=== PATIENT | male | born 1940 | race Caucasian/White ===

== ENCOUNTER 2020-11-10 10:15 | Emergency (ER) | payer MEDICARE, BC, SELFPAY ==
[2020-11-10 10:24] VITALS: BP 145/73; PULSE 58; RESP 20; TEMP 36.2; O2SAT 98
--- NOTE | 2020-11-10 10:34 | ED.BACK ---
HPI - Back Pain/Injury General Chief Complaint: Back Pain/Injury Stated Complaint: Lower back pain Time Seen by Provider: 11/10/20 10:24 Source: patient and RN notes reviewed History of Present Illness HPI Narrative: Patient is an 80-year-old male who presents the urgent care with complaints of acute on chronic left low back pain. 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 Patient states that he took ibuprofen last night and it felt much better. Denies of any radiation of the pain or any loss of bowel or bladder. No other acute complaints. No acute distress noted. Patient aware of the plan of care. Some parts of this dictation were generated by voice recognition software and may contain typographical and/or grammatical inaccuracies. Related Data Home Medications Medication Instructions Recorded Confirmed atorvastatin 40 mg PO DAILY 11/10/20 11/10/20 clopidogrel [Plavix] 75 mg PO DAILY 11/10/20 11/10/20 nifedipine 60 mg PO DAILY 11/10/20 11/10/20 Allergies Allergy/AdvReac Type Severity Reaction Status Date / Time Penicillins Allergy Unknown Weakness Verified 11/10/20 10:34 Review of Systems Review of Systems: CONSTITUTIONAL: Denies fever, chills, or sweats. EYES: Denies visual changes, redness, or discharge. ENT: Denies rhinorrhea, congestion, sore throat, or otalgia. CARDIOVASCULAR: Denies chest pain, palpitations, or edema. RESPIRATORY: Denies cough or dyspnea. GASTROINTESTINAL: Denies abdominal pain, nausea, vomiting, or diarrhea. GENITOURINARY: Denies dysuria or hematuria. SKIN: Denies rash or itching. MUSCULOSKELETAL: Reports of acute on chronic left lower back pain NEUROLOGIC: Denies headache, numbness, or weakness. All other systems reviewed are negative, except as documented in HPI. [facility] Family History Family History (Updated 10/29/18 @ 15:28 by DOCTOR UNKNOWN) Father Family history of cardiovascular disease Mother Family history of malignant neoplasm of breast in first degree relative Social History Social History Smoking status: Heavy tobacco smoker Second hand tobacco smoke exposure: Yes Alcohol intake: current Comments At the time of my signature, I reviewed and agree with the nursing past medical, surgical, social, and family history. There is no relevant family history pertinent to the patient complaint. Exam Narrative: GENERAL: This is a well-nourished, well-developed patient, in no apparent distress. HEAD: normocephalic, atraumatic. EYES: PERRL. Sclera clear/white. Vision is grossly intact. EARS: External ears normal NOSE: External nose normal with no obvious nasal discharge, nares without redness, no rhinorrhea. THROAT: Mucous membranes moist NECK: Neck supple CARDIOVASCULAR: Regular rate and rhythm RESPIRATORY: Clear to auscultation. Breath sounds equal bilaterally. No wheezes, rales, or rhonchi. SKIN: warm, intact with no suspicious lesions or rash, good texture and turgor. NEURO: awake, alert, and oriented to person, place and time. There were no obvious focal neurologic abnormalities. EXTREMITIES: No clubbing, cyanosis, or edema. BACK: Mild to moderate left lumbar tenderness. Negative SLE Course Vital Signs Vital signs: Vital Signs Temperature 97.1 F L 11/10/20 10:24 Pulse Rate 58 L 11/10/20 10:24 Respiratory Rate 20 11/10/20 10:24 Blood Pressure 145/73 H 11/10/20 10:24 Pulse Oximetry 98 11/10/20 10:24 Temperature 97.1 F L 11/10/20 10:24 Pulse Rate 58 L 11/10/20 10:24 Respiratory Rate 20 11/10/20 10:24 Blood Pressure 145/73 H 11/10/20 10:24 Pulse Oximetry 98 11/10/20 10:24 Reviewed-patient is informed that they may have pre-hypertension or hypertension based on a blood pressure reading in the department. I recommend the patient call the primary care provider listed on their discharge instructions or a physician of their valdes
[2020-11-10] MEDS: predniSONE 20 MG TABLET 60 MG PO (10:46)
== END 2020-11-10 10:57 | disposition home or self-care (01) ==
PROVIDERS: Emergency Provider Nurse Practitioner Family; PCP Family Medicine
DX: S39.012A Strain of muscle, fascia and tendon of lower back, initial encounter (principal); X50.3XXA Overexertion from repetitive movements, initial encounter; F17.200 Nicotine dependence, unspecified, uncomplicated; I25.10 Atherosclerotic heart disease of native coronary artery without angina pectoris; E78.00 Pure hypercholesterolemia, unspecified; I10 Essential (primary) hypertension; I49.3 Ventricular premature depolarization; Z85.46 Personal history of malignant neoplasm of prostate; Z92.3 Personal history of irradiation
CPT/HCPCS: 99213; G0463; J7512

== ENCOUNTER 2021-05-25 12:26 | Emergency (ER) | payer MEDICARE, BC, SELFPAY ==
[2021-05-25 12:32] VITALS: BP 156/72; PULSE 54; RESP 20; TEMP 36.7; O2SAT 98
--- NOTE | 2021-05-25 12:50 | ED.BACK ---
HPI - Back Pain/Injury General Chief Complaint: Abdominal Pain Stated Complaint: lower right back pain crossing to front Time Seen by Provider: 05/25/21 12:48 Source: patient and RN notes reviewed Mode of arrival: ambulatory Limitations: no limitations History of Present Illness HPI Narrative: 81-year-old male presents with concern for back pain that started this morning that is now radiating to his abdomen. 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 He describes a mid abdominal tear burning feeling. He reports symptoms are worse when he presses on his abdomen. He denies chest pain, shortness of breath, palpitations, syncope or near syncope, lightheadedness. He denies nausea, vomiting, diarrhea or constipation. Reports using heat without relief MD elicited complaint: back pain Related Data Home Medications Medication Instructions Recorded Confirmed atorvastatin 40 mg PO DAILY 11/10/20 11/10/20 clopidogrel [Plavix] 75 mg PO DAILY 11/10/20 11/10/20 nifedipine 60 mg PO DAILY 11/10/20 11/10/20 Allergies Allergy/AdvReac Type Severity Reaction Status Date / Time Penicillins Allergy Unknown Weakness Verified 11/10/20 10:34 Review of Systems Review of Systems: CONSTITUTIONAL: Denies malaise, chills, sweats, or fever. CARDIOVASCULAR: Denies chest pain, palpitations, or edema. RESPIRATORY: Denies cough or dyspnea. GASTROINTESTINAL: Reports tearing/burning abdominal pain. Denies nausea, vomiting, diarrhea, loss of bowel function GENITOURINARY: Denies dysuria, hematuria, frequency, loss of bladder function. Reports his urine is clearer than usual SKIN: Denies rash or itching. MUSCULOSKELETAL: Reports right low back pain NEUROLOGIC: Denies numbness, weakness, or headache. All systems reviewed & are unremarkable except as noted in HPI and below PMFSH Family History Family History (Updated 10/29/18 @ 15:28 by DOCTOR UNKNOWN) Father Family history of cardiovascular disease Mother Family history of malignant neoplasm of breast in first degree relative Social History Social History Smoking status: Heavy tobacco smoker Second hand tobacco smoke exposure: Yes Alcohol intake: current Comments At time of signature, agree with nursing past medical, surgical, social and family history. There is no relevant family history pertinent to the presenting complaint Exam Narrative: GENERAL: Well-appearing, well-nourished, and in no acute distress. HEAD: Normocephalic, atraumatic. EYES: PERRLA and EOMI. NECK: Supple. No lymphadenopathy. CHEST: Clear to auscultation. No respiratory distress. HEART: Regular rate and rhythm. Distal pulses palpable and equal, cap refill <3 seconds ABDOMEN: Soft, nontender, obese, normal active bowel sounds, no palpable or pulsatile masses. MUSCULOSKELETAL: Grossly normal range of motion and strength in all extremities. Transfers from to sitting to standing. SKIN: Warm, dry, no rash. NEURO: No focal deficits. Alert and oriented x3. Normal gait. PSYCH: Normal mood and affect Course Course Emergency Course: Patient is aware of understands and agrees to be transferred to the emergency department patient agrees to proceed directly to the emergency department. Portions of this record may have been created with voice recognition software Level of Care: Express Care Visit Vital Signs Vital signs: Vital Signs Temperature 98.0 F 05/25/21 12:32 Pulse Rate 54 L 05/25/21 12:32 Respiratory Rate 20 05/25/21 12:32 Blood Pressure 156/72 H 05/25/21 12:32 Pulse Oximetry 98 05/25/21 12:32 Temperature 98.0 F 05/25/21 12:32 Pulse Rate 54 L 05/25/21 12:32 Respiratory Rate 20 05/25/21 12:32 Blood Pressure 156/72 H 05/25/21 12:32 Pulse Oximetry 98 05/25/21 12:32 Reviewed. Patient has history of hypertension Transfer Transfered to: [place] Transfer rationale: Back pain with associated abdominal pain Acceptin
== END 2021-05-25 13:02 | disposition short-term general hospital (02) ==
PROVIDERS: Emergency Provider Nurse Practitioner; PCP Family Medicine
DX: R10.9 Unspecified abdominal pain (principal); I25.10 Atherosclerotic heart disease of native coronary artery without angina pectoris; E78.00 Pure hypercholesterolemia, unspecified; I10 Essential (primary) hypertension; I73.9 Peripheral vascular disease, unspecified; Z85.46 Personal history of malignant neoplasm of prostate; Z92.3 Personal history of irradiation
CPT/HCPCS: 99212; G0463

== ENCOUNTER 2021-05-25 13:28 | Emergency (ER) | payer MEDICARE, BC, SELFPAY ==
--- NOTE | ~2021-05-25 | CT_ITS ---
EXAMINATION: CT abdomen pelvis wo con EXAM DATE: 05/25/2021 14:35 INDICATION: right flank pain, radiate to groin . TECHNIQUE: Spiral CT of the abdomen and pelvis was performed without contrast. Axial, coronal and sag ittal images were reviewed. The dose-length product (DLP) for this examination was 361.14 mGy-cm. T he exposure was tailored according to patient size (auto mA exposure control), and iterative reconstr uction (ASIR) was used as additional dose reduction technique. There is no prior study for compariso n. FINDINGS: Small renal cysts. There is no nephrolithiasis or hydronephrosis. There are prostate radi ation seeds. Prostate is normal in size. Small right inguinal fat-containing hernia. The bladder is unremarkable. The liver, spleen, adrenal glands and pancreas are unremarkable. Gallbladder is unrem arkable. No biliary obstruction. There is no retroperitoneal or pelvic lymphadenopathy. There is moderate to severe scattered arteriosclerotic disease. The appendix is normal. The stomach and small bowel are unremarkable. There is moderate amount of c olonic stool. No free intraperitoneal gas. The heart is normal in size. There are no pericardial or pleural effusions. The lung bases are unremarkable. There are no osteoblastic or osteolytic les ions identified. IMPRESSION: 1. No nephrolithiasis, hydronephrosis or acute intra-abdominal findings. 2. Moderate amount of colonic stool and gas. 3. Small right inguinal hernia. Reviewed, dictated and finalized at location B.
[2021-05-25 13:36] VITALS: BP 171/99; PULSE 57; RESP 18; TEMP 36.8; O2SAT 96
--- NOTE | 2021-05-25 14:04 | ED.BACK ---
HPI - Back Pain/Injury General Chief Complaint: Back Pain/Injury Stated Complaint: groin pain Time Seen by Provider: 05/25/21 13:32 Source: patient, RN notes reviewed and old records reviewed Mode of arrival: ambulatory Limitations: no limitations History of Present Illness HPI Narrative: This is an 81 year old male who presents with complaint of right lower back pain. He noticed pain today when he was standing up. His pain was located to his right lower back . His pain was worse with walking. He applied a heating pain and OTC pain patch. He states this did help but he developed severe pain to right groin when he was getting the bed. This pain has now resolved. He denies nausea, vomiting, leg weakness, numbness or tingling. He has chronic swelling to his right leg due to previous surgery and vascular procedures. Related Data Home Medications Medication Instructions Recorded Confirmed atorvastatin 40 mg PO DAILY 11/10/20 11/10/20 clopidogrel [Plavix] 75 mg PO DAILY 11/10/20 11/10/20 nifedipine 60 mg PO DAILY 11/10/20 11/10/20 Allergies Allergy/AdvReac Type Severity Reaction Status Date / Time Penicillins Allergy Unknown Weakness Verified 05/25/21 14:02 Review of Systems Review of Systems: All systems reviewed & are unremarkable except as noted in HPI and below Constitutional: Constitutional: Denies chills and Denies fever(s) Cardiovascular: Cardiovascular: Denies chest pain Respiratory: Respiratory: Denies cough and Denies dyspnea Gastrointestinal: Gastrointestinal: Denies abdominal pain, Denies diarrhea, Denies nausea and Denies vomiting Genitourinary: Genitourinary: Denies hematuria Musculoskeletal: Musculoskeletal: Reports back pain Neurologic: Denies focal weakness, Denies numbness and Denies weakness [facility] Past Medical History Medical History (Updated 05/25/21 @ 15:54 by Emily Bustillo MD) DVT (deep venous thrombosis) Hypertension Prostate cancer Vascular disease Surgical History Surgical History (Updated 05/25/21 @ 15:50 by Emily Bustillo MD) History of back surgery Hx of appendectomy Family History Family History (Updated 10/29/18 @ 15:28 by DOCTOR UNKNOWN) Father Family history of cardiovascular disease Mother Family history of malignant neoplasm of breast in first degree relative Social History Social History Smoking status: Heavy tobacco smoker Second hand tobacco smoke exposure: Yes Alcohol intake: current Exam Const: General: no acute distress and alert Orientation/consciousness: patient oriented x3 Eyes: EOM: EOMs intact bilaterally Resp: Effort & Inspection: normal respiratory effort and no retractions Auscultation: clear to auscultation bilaterally Cardio: Rate: regular rate Rhythm: regular rhythm Heart sounds: no murmurs GI: GI Palp: Yes Soft to palpation, No Tenderness to palpation present (GI) and No Guarding due to palpation present (GI) Auscultation: normal bowel sounds : General: Yes no CVA tenderness Back/Spine/Pelvis: Back: no CVA tenderness Skin: General skin exam: normal color Rashes: no rashes Neuro: General: patient oriented x3, moves all extremities and CN's II-XI intact bilaterally Extrem: Other: right leg edema, right femoral, right pedal pulses presents, neurovascular intact Psych: Mental Status: mental status grossly normal Affect: normal affect Course Reevaluation(s) Reevaluation #1: Patient's pain has resolved . It resolved before he was evaluation. He has chronic edema from multiple procedures. he does not have worsening swelling. He denies not have signs of ischemia to suggest acute artery occlusion. This is likely muscular Date: 05/25/21 Time: 15:51 Vital Signs Vital signs: Vital Signs Temperature 98.2 F 05/25/21 13:36 Pulse Rate 57 L 05/25/21 13:36 Respiratory Rate 18 05/25/21 13:36 Blood Pressure 171/99 H 05/25/21 13:36 Pulse Oximetry 96 05/25/21 13:36 Te
[2021-05-25 14:29] LABS: Basophils Absolute Auto 0.1 K/mm3 (0.0-0.1); Basophils Percent Auto 0.8 % (0.2-1.2); Eosinophils Absolute Auto 0.3 K/mm3 (0-0.3); Eosinophils Percent Auto 3.9 % (0-4.4); Hematocrit 48.7 % (42.0-52.0); Hemoglobin 16.1 g/dL (14.0-18.0); Immature Granulocyte Absolute 0.03 K/mm3 (0.00-0.031); Immature Granulocyte Percent A 0.4 % (0-0.5); Lymphocytes Absolute Auto 1.95 K/mm3 (0.9-3.2); Lymphocytes Percent Auto 25.2 % (18.3-44.2); Mean Corpuscular HGB Conc 33.1 g/dl (32-36); Mean Corpuscular Hemoglobin 29.9 pg (26-34); Mean Corpuscular Volume 90.5 fl (80-100); Mean Platelet Volume 9.8 fl (7.4-10.4); Monocytes Absolute Auto 0.8 K/mm3 (0.1-0.6); Monocytes Percent Auto 10.1 % (2.6-8.5); Neutrophils Absolute Auto 4.6 K/mm3 (1.3-6.7); Neutrophils Percent Auto 59.6 % (45.5-73.1); Platelet Count Result 282 k/mm3 (150-375); Red Blood Count 5.38 M/mm3 (4.6-6.20); Red Cell Distribution Width 14.8 % (11.5-14.5); White Blood Count 7.8 K/mm3 (4.5-10.0)
[2021-05-25 14:32] LABS: Appearance Urine Clear (Clear); Bilirubin Urine Negative (Negative); Blood Urine 1+ (Negative); Color Urine Yellow (Yellow); Glucose Urine UA Negative (Negative); Ketones Urine Negative (Negative); Leukocyte Esterase Ur Negative LEU/UL (Negative); Nitrate Urine Negative (Negative); Protein Urine Negative (Negative); pH Urine 7.5 (5.0-9.0)
[2021-05-25 14:39] LABS: Alanine Aminotransferase 19 U/L (4-50); Albumin Level 4.6 g/dL (3.5-5.1); Alkaline Phosphatase 76 U/L (38-126); Anion Gap 6 mmol/L (8-16); Aspartate Amino Transferase 31 U/L (17-59); Bilirubin,Total 0.6 mg/dL (0.2-1.3); Blood Urea Nitrogen 15 mg/dL (9-20); Calcium 9.2 mg/dL (8.4-10.2); Carbon Dioxide 25 mmol/L (22-30); Chloride 103 mmol/L (98-107); Estimated CRCL calculation 72 ml/min; Estimated Glomerular Filt Rate > 60; Glucose 113 mg/dL (65-110); Potassium 4.4 mmol/L (3.4-5.0); Sodium 134 mmol/L (137-145)
[2021-05-25 14:45] LABS: Mucus Urine Rare /lpf; RBC Urine 21-50 /hpf (0-2); WBC Urine 0-3 /hpf
[2021-05-25 14:46] LABS: Add Urine Microscopic? NO
[2021-05-25 14:48] LABS: Prothrombin Time 12.6 Seconds (11.1-14.7)
[2021-05-25 14:49] LABS: Partial Thromboplastin Time 26.6 SECONDS (22.3-36.8)
[2021-05-25 16:23] VITALS: BP 159/78; PULSE 84; RESP 16; O2SAT 98
== END 2021-05-25 16:23 | disposition home or self-care (01) ==
PROVIDERS: Emergency Provider General Practice; PCP Family Medicine
DX: R10.9 Unspecified abdominal pain (principal); I10 Essential (primary) hypertension; I38 Endocarditis, valve unspecified; Z86.718 Personal history of other venous thrombosis and embolism; Z85.46 Personal history of malignant neoplasm of prostate; F17.200 Nicotine dependence, unspecified, uncomplicated; K40.90 Unilateral inguinal hernia, without obstruction or gangrene, not specified as recurrent
CPT/HCPCS: 36415; 74176; 80053; 81003; 85025; 85610; 85730; 99284

== ENCOUNTER 2021-09-02 08:04 | Emergency (ER) | payer MEDICARE, BC, SELFPAY ==
--- NOTE | ~2021-09-02 | XR_ITS ---
XR cervical spine 4-5V 09/02/2021 08:36 Indication: Generalized neck pain and stiffness Procedure: 4 views of the cervical spine Comparison: No prior studies for comparison. Findings: Vertebral body heights are maintained. There is disc narrowing at C5-6 and C6-7. There is m ultilevel uncinate and facet hypertrophy. No prevertebral soft tissue swelling. There is degenerative anterolisthesis at C3-4. Lung apices are normal. There are carotid calcifications. Impression: 1: Moderate cervical spondylosis. Reviewed, dictated and finalized at location A. Impression: 1: Moderate cervical spondylosis.
[2021-09-02 08:14] VITALS: BP 142/68; PULSE 60; RESP 16; TEMP 36.3; O2SAT 97
--- NOTE | 2021-09-02 08:26 | ED.GENADULT ---
HPI - General Adult General Chief complaint: Neck Pain/Injury Stated complaint: Neck pain Source: patient Mode of arrival: ambulatory Limitations: no limitations History of Present Illness HPI narrative: Patient presents for evaluation of neck pain for the last 6 days. He indicates he woke from sleep with his symptoms. He thought he had slept on (his) neck wrong . He does not remember any specific injury. He states he does use a riding plush brusher and states that he does get jostled around a bit while he is riding. Since that time he feels like his neck is sore and stiff. Current pain rating is 4/10 but pain does increase to 7/10 at times. Pain was initially in left trapezius but now has pain in left and right trapezius muscles. Denies radiation into upper extremities. He has used aleve with some improvement in his symptoms thereafter. Related Data Home Medications Medication Instructions Recorded Confirmed atorvastatin 40 mg tablet 40 mg PO DAILY 11/10/20 09/02/21 clopidogrel 75 mg tablet (Plavix) 75 mg PO DAILY 11/10/20 09/02/21 nifedipine 60 mg tablet,extended 60 mg PO DAILY 06/14/21 09/02/21 release 24 hr umeclidinium 62.5 mcg-vilanterol 1 inh inhalation DAILY 06/14/21 09/02/21 25 mcg/actuation powdr for inhalation aspirin 81 mg tablet,delayed 81 mg PO DAILY 07/27/21 09/02/21 release nitroglycerin 0.4 mg sublingual 0.4 mg sublingual Q5M PRN Chest 07/27/21 09/02/21 tablet Pain umeclidinium 62.5 mcg-vilanterol 2 inh inhalation DAILY 09/02/21 09/02/21 25 mcg/actuation powdr for inhalation (Anoro Ellipta) Allergies Allergy/AdvReac Type Severity Reaction Status Date / Time No Known Allergies Allergy Verified 09/02/21 08:23 Review of Systems Review of Systems: CONSTITUTIONAL: Denies fever, chills, or sweats. EYES: Denies visual changes, redness, or discharge. ENT: Denies rhinorrhea, congestion, sore throat, or otalgia. CARDIOVASCULAR: Denies chest pain, palpitations, or edema. RESPIRATORY: Denies cough or dyspnea. GASTROINTESTINAL: Denies abdominal pain, nausea, vomiting, or diarrhea. GENITOURINARY: Denies dysuria or hematuria. SKIN: Denies rash or itching. MUSCULOSKELETAL: Reports neck pain. Denies back pain, joint pain NEUROLOGIC: Denies headache, numbness, dizziness, or weakness. PSYCHIATRIC: Denies anxiety or depression. [facility] Past Medical History Medical History CAD (coronary artery disease) Carotid artery stenosis Chronic low back pain COPD (chronic obstructive pulmonary disease) Dyslipidemia Essential (primary) hypertension History of deep venous thrombosis (DVT) of distal vein of right lower extremity History of prostate cancer (~2006) s/p. radiation ALFREDO (obstructive sleep apnea) PAD (peripheral artery disease) Pre-diabetes Surgical History Surgical History History of angioplasty of peripheral vessel 08/24 - Left sup femoral and popliteal stent 2011 - stent in RLE artery History of back surgery (~1972) History of carpal tunnel release (~01/2006) History of coronary angioplasty (~1993) History of femoropopliteal bypass (~1978) Right - 1978, 1987 Hx of appendectomy (~1978) Family History Family History Father Family history of cardiovascular disease Mother Family history of malignant neoplasm of breast in first degree relative Social History Social History Smoking packs per day: 1 Smoking cigarettes per day: 20.0 Years smoked: 67 Smoking pack-years: 67.00 Smoking status: Current every day smoker Second hand tobacco smoke exposure: Yes Alcohol intake: current Exam Narrative: GENERAL: Well-appearing, well-nourished, and in no acute distress. HEAD: Normocephalic, atraumatic. EYES: PERRLA and EOMI.
== END 2021-09-02 08:55 | disposition home or self-care (01) ==
PROVIDERS: Emergency Provider Nurse Practitioner; PCP Family Medicine
DX: M47.812 Spondylosis without myelopathy or radiculopathy, cervical region (principal); M79.10 Myalgia, unspecified site; F17.210 Nicotine dependence, cigarettes, uncomplicated; I25.10 Atherosclerotic heart disease of native coronary artery without angina pectoris; I65.29 Occlusion and stenosis of unspecified carotid artery; J44.9 Chronic obstructive pulmonary disease, unspecified; E78.5 Hyperlipidemia, unspecified; I10 Essential (primary) hypertension; Z86.718 Personal history of other venous thrombosis and embolism; G47.33 Obstructive sleep apnea (adult) (pediatric); I73.9 Peripheral vascular disease, unspecified; R73.03 Prediabetes; Z85.46 Personal history of malignant neoplasm of prostate; Z92.3 Personal history of irradiation; Z95.1 Presence of aortocoronary bypass graft; Z95.820 Peripheral vascular angioplasty status with implants and grafts; Z79.82 Long term (current) use of aspirin
CPT/HCPCS: 72050; 99213; G0463

== ENCOUNTER 2022-01-25 13:32 | Outpatient (CLI) | payer MEDICARE, BC, SELFPAY ==
[2022-01-25 20:40] LABS: Hemoglobin A1C 6.4 % (<5.7)
[2022-01-25 21:09] LABS: Alanine Aminotransferase 23 U/L (6-50); Albumin Level 4.3 g/dL (3.5-5.1); Alkaline Phosphatase 70 U/L (38-126); Anion Gap 4 mmol/L (8-16); Aspartate Amino Transferase 46 U/L (17-59); Bilirubin,Total 0.6 mg/dL (0.2-1.3); Blood Urea Nitrogen 15 mg/dL (9-20); Calcium 8.7 mg/dL (8.4-10.2); Carbon Dioxide 29 mmol/L (22-30); Chloride 105 mmol/L (98-107); Estimated Glomerular Filt Rate > 60; Glucose 120 mg/dL (65-110); Sodium 138 mmol/L (137-145)
== END 2022-01-25 13:33 | disposition home or self-care (01) ==
LOC: ANHGOSHLAB 13:34
PROVIDERS: PCP Family Medicine; Visit Provider Family Medicine
DX: E78.5 Hyperlipidemia, unspecified (principal); I10 Essential (primary) hypertension; I65.29 Occlusion and stenosis of unspecified carotid artery; R73.03 Prediabetes
CPT/HCPCS: 36415; 80053; 83036

== ENCOUNTER 2022-05-23 12:26 | Inpatient (IN) | payer MEDICARE, BC, SELFPAY ==
[2022-05-23] VITALS (22 sets, daily range): BP systolic 95–143; BP diastolic 56–96; PULSE 14–149; RESP 18–26; TEMP 35.7–36.6; O2SAT 94–98; BMI 30.9
--- NOTE | ~2022-05-23 | XR_ITS ---
XR chest 2V 05/23/2022 13:06 Indication: Chest tightness Procedure: 2 view chest Comparison: Comparison to multiple prior studies sequentially, with oldest reviewed study dated 08/06. Findings: Heart size normal. Right lung clear. Left basilar infiltrates may represent atelectasis or pneumonia. There is atherosclerosis. There are degenerative changes of the right shoulder. No acute o sseous abnormality Impression: 1: Left basilar infiltrates, atelectasis versus pneumonia. Reviewed, dictated and finalized at location B. Impression: 1: Left basilar infiltrates, atelectasis versus pneumonia.
--- NOTE | ~2022-05-23 | CT_ITS ---
EXAMINATION: CTA chest PE protocol DATE: 05/24/2022 20:08 INDICATION: Chest pain TECHNIQUE: Computed tomography angiography (CTA) of the chest was performed with 100 mL Omnipaque-350 intravenous contrast timed to evaluate the pulmonary arteries. Coronal maximum intensity projection 3D-reconstructions were created by the technologist. The dose-length product (DLP) was 539.83 mGy-cm. Automated exposure control and iterative reconstruction technique were employed. COMPARISON: None. FINDINGS: The pulmonary arteries are well-opacified. No pulmonary embolism is identified. There is mo derate emphysema. There is mild atelectasis in the lower lobes. No pleural effusion or pneumothorax. Cardiomegaly is noted. There is calcified coronary artery atherosclerosis. There is mild bilateral hi lar lymphadenopathy. There is moderate thoracic spondylosis. IMPRESSION: 1. Mild atelectasis. 2. Mild bilateral hilar lymphadenopathy, likely reactive. Reviewed, dictated and finalized at location F.
--- NOTE | ~2022-05-23 | US_ITS ---
EXAMINATION: US venous doppler [facility] DATE: 05/23/2022 19:31 INDICATION: Edema . TECHNIQUE: Grayscale images without and with compression and Doppler images of the bilateral lower ex tremity veins were obtained. COMPARISON: 07/14/2018. FINDINGS: The right common femoral vein, profunda (deep) femoral vein, popliteal vein, peroneal vein, posterior tibial veins, gastrocnemius vein, and greater saphenous vein are patent. The left mid superficial femoral vein is partially compressible and displays decreased/absent flow. T he left common femoral vein, profunda (deep) popliteal vein, peroneal vein, posterior tibial veins, g astrocnemius vein, and greater saphenous vein are patent. IMPRESSION: 1. Nonocclusive deep venous thrombosis involving the mid left superficial femoral vein of indetermina te age. 2. Otherwise patent bilateral lower extremity veins. Reviewed, dictated and finalized at location K. IMPRESSION: 1. Nonocclusive deep venous thrombosis involving the mid left superficial femor al vein of indeterminate age. 2. Otherwise patent bilateral lower extremity veins.
--- NOTE | 2022-05-23 12:36 | ECG_ITS ---
Measurements Intervals [place] Rate: 144 P: IA: 0 QRS: 22 QRSD: 111 T: 222 QT: 290 QTc: 450 Interpretive Statements ATRIAL FIBRILLATION WITH RAPID VENTRICULAR RESPONSE LOW QRS VOLTAGE IN PRECORDIAL LEADS [QRS DEFLECTION < 1.0 mV IN CHEST LEADS] INFERIOR MYOCARDIAL INFARCTION , OF INDETERMINATE AGE [40+ ms Q WAVE AND/OR ST/T ABNORMALITY IN II/aVF] MARKED ST DEPRESSION, CONSIDER SUBENDOCARDIAL INJURY [0.2+ mV ST DEPRESSION] NO PREVIOUS ECG AVAILABLE FOR COMPARISON Electronically Signed On 05-23-2022 18:19:03 CDT by Hu Simmons M.D.
[2022-05-23 12:47] LABS: Basophils Absolute Auto 0.1 K/mm3 (0.0-0.1); Basophils Percent Auto 1.1 % (0.2-1.2); Eosinophils Absolute Auto 0.4 K/mm3 (0-0.3); Eosinophils Percent Auto 4.8 % (0-4.4); Hematocrit 42.9 % (42.0-52.0); Hemoglobin 14.6 g/dL (14.0-18.0); Immature Granulocyte Absolute 0.03 K/mm3 (0.00-0.031); Immature Granulocyte Percent A 0.4 % (0-0.5); Lymphocytes Absolute Auto 2.05 K/mm3 (0.9-3.2); Lymphocytes Percent Auto 24.8 % (18.3-44.2); Mean Corpuscular Volume 88.1 fl (80-100); Mean Platelet Volume 9.7 fl (7.4-10.4); Monocytes Absolute Auto 0.9 K/mm3 (0.1-0.6); Monocytes Percent Auto 10.8 % (2.6-8.5); Neutrophils Absolute Auto 4.8 K/mm3 (1.3-6.7); Neutrophils Percent Auto 58.1 % (45.5-73.1); Platelet Count Result 227 k/mm3 (150-375); Red Blood Count 4.87 M/mm3 (4.6-6.20); White Blood Count 8.3 K/mm3 (4.5-10.0)
[2022-05-23 13:03] LABS: Alanine Aminotransferase 21 U/L (6-50); Albumin Level 4.1 g/dL (3.5-5.1); Alkaline Phosphatase 64 U/L (38-126); Anion Gap 9 mmol/L (8-16); Aspartate Amino Transferase 26 U/L (17-59); Bilirubin,Total 0.9 mg/dL (0.2-1.3); Blood Urea Nitrogen 18 mg/dL (9-20); Calcium 8.4 mg/dL (8.4-10.2); Carbon Dioxide 23 mmol/L (22-30); Chloride 104 mmol/L (98-107); Estimated CRCL calculation 68 ml/min; Estimated Glomerular Filt Rate > 60; Glucose 118 mg/dL (65-110); Lipase 75 U/L (23-300); Potassium 3.9 mmol/L (3.4-5.0); Prothrombin Time 12.7 Seconds (11.1-14.7); Sodium 136 mmol/L (137-145)
[2022-05-23 13:04] LABS: Partial Thromboplastin Time 24.6 SECONDS (22.3-36.8)
[2022-05-23] MEDS: IPRATROPIUM BR 0.02% INH SOLN 0.5 MG/2.5 ML VIAL INHALATION ×2 (13:09→20:48)
[2022-05-23] MEDS: LEVALBUTEROL NEB 1.25 MG/3 ML INHALATION (13:09)
[2022-05-23] MEDS: dilTIAZem HCl INJ 25 MG/5 ML VIAL 10 MG IV PUSH (13:21)
--- NOTE | 2022-05-23 14:11 | ED.GENADULT ---
HPI - General Adult General Chief complaint: Chest Pain Stated complaint: weakness, CP Time Seen by Provider: 05/23/22 12:34 History of Present Illness HPI narrative: Patient is an 82-year-old male who presents ER with weakness. Sudden onset 11 AM. He felt cool and flushed. Had pain in his left arm and central chest. Has had decreased energy since then. Reports he took a nitroglycerin without improvement. Denies fevers or chills or sweats. No exertional chest pain prior to that. He sees Dr. English. Found to be in A-fib RVR upon arrival here. Patient has no history of A-fib. He is anticoagulated on Eliquis due to history of DVT. Related Data Home Medications Medication Instructions Recorded Confirmed atorvastatin 40 mg tablet 40 mg PO HS 11/10/20 05/23/22 clopidogrel 75 mg tablet (Plavix) 75 mg PO DAILY 11/10/20 05/23/22 nifedipine 60 mg tablet,extended 60 mg PO DAILY 06/14/21 05/23/22 release 24 hr aspirin 81 mg tablet,delayed 81 mg PO HS 07/27/21 05/23/22 release nitroglycerin 0.4 mg sublingual 0.4 mg sublingual Q5M PRN Chest 07/27/21 05/23/22 tablet Pain umeclidinium 62.5 mcg-vilanterol 1 inh inhalation DAILY 01/25/22 05/23/22 25 mcg/actuation powdr for inhalation (Anoro Ellipta) Allergies Allergy/AdvReac Type Severity Reaction Status Date / Time No Known Allergies Allergy Verified 01/25/22 12:48 Review of Systems Review of Systems: All systems reviewed & are unremarkable except as noted in HPI and below Constitutional: Constitutional: Reports chills, Reports fatigue and Denies fever(s) ENT: Denies nasal congestion and Denies sore throat Cardiovascular: Cardiovascular: Reports chest pain, Denies rapid heart rate and Reports radiating jaw, neck or arm pain Respiratory: Respiratory: Denies cough, Denies dyspnea and Reports wheezing Gastrointestinal: Gastrointestinal: Denies abdominal pain, Denies nausea and Denies vomiting PMFSH Past Medical History Medical History CAD (coronary artery disease) Carotid artery stenosis Chronic low back pain COPD (chronic obstructive pulmonary disease) Dyslipidemia Essential (primary) hypertension History of deep venous thrombosis (DVT) of distal vein of right lower extremity History of prostate cancer (~2006) s/p. radiation ALFREDO (obstructive sleep apnea) PAD (peripheral artery disease) Pre-diabetes Venous insufficiency of right leg Surgical History Surgical History History of angioplasty of peripheral vessel 08/24 - Left sup femoral and popliteal stent 2011 - stent in RLE artery History of back surgery (~1972) History of carpal tunnel release (~01/2006) History of coronary angioplasty (~1993) History of femoropopliteal bypass (~1978) Right - 1978, 1987 Hx of appendectomy (~1978) Family History Family History Father Family history of cardiovascular disease Mother Family history of malignant neoplasm of breast in first degree relative Social History Social History (Updated 05/23/22 @ 18:04 by Emma Machuca NP) Social History: He lives with . He has 3 sons . He is retired from [employer]. code status: full code Smoking packs per day: 1 Smoking cigarettes per day: 20.0 Years smoked: 68 Smoking pack-years: 68.00 Smoking status: Current every day smoker Tobacco type: cigarettes Second hand tobacco smoke exposure: Yes Alcohol intake: current Drinks per week: 1 Substance use: never Substance use type: does not use Lack of Transportation: No Lack of Food: Never True Current Housing: I Have Housing Concerned About Future Housing: No Difficulty Paying Gas/Electric Bills: No Difficulty Paying for Meds: No Currently Unemployed: No Education: Associate Degree Difficulty w/ Childcare or Family Care: No [facility]
[2022-05-23] MEDS: dilTIAZem 100 MG/100 ML 100 MG/100 ML BAG IV CONT (14:13)
--- NOTE | 2022-05-23 14:37 | PM.IMHP ---
H&P: HPI History of Present Illness Date/Time: 05/23/22 14:37 Chief Complaint: Chest pain Narrative: This is a 82-year-old male patient who presented to the emergency room with complaint of weakness. He felt: Flushed at that time. The patient was having central chest pain as well as radiating pain to the left arm. This was a sudden on set at 11:00 a.m. today. The patient has had decreased energy since this episode started. He took nitroglycerin without any improvement. He denied any nausea vomiting diarrhea. He denies any cough for fever chills. 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 The patient has a history of having a DVT and he has right leg swelling. He is already on anticoagulation was found the be in atrial fibrillation upon arrival to the emergency room department. The patient has no prior history of any atrial fibrillation. The patient was given IV Cardizem, a nebulizer treatment and then started on amiodarone. His blood pressure was 111/56. Cardiology has been consulted. Sodium 136. Troponin 0.292. On the 2nd troponin with the 1st troponin being nonreactive. Chest x-ray was read as left basilar infiltrate atelectasis versus pneumonia. The patient is being admitted to observation status on the date of service of 05/23/2022. Review of Systems Review of Systems: All systems reviewed & are unremarkable except as noted in HPI and below Constitutional: Constitutional: Reports as per HPI and Reports no additional constitutional complaints Eyes: Eyes: Reports as per HPI and Reports no additional eye complaints ENT: Reports system reviewed and no additional complaints, except as documented and Reports Normal hearing present Cardiovascular: Cardiovascular: Reports no additional cardiovascular complaints Respiratory: Respiratory: Reports no additional respiratory complaints and Reports no additional respiratory complaints Gastrointestinal: Gastrointestinal: Reports as per HPI and Reports no additional gastrointestinal complaints Musculoskeletal: Musculoskeletal: Reports no additional musculoskeletal complaints Integumentary/Breasts: Skin/Breast: Reports system reviewed and no additional complaints, except as docu and Reports as per HPI Neurologic: Reports system reviewed and no additional complaints, except as documented, Reports as per HPI and Reports Normal hearing present Psychiatric: Psychiatric: Reports no additional psychiatric complaints and Reports as per HPI Endocrine: Endocrine: Reports no additional endocrine complaints Hematologic/Lymphatic: Hematologic/Lymphatic: Reports no additional hematologic/lymphatic complaints Allergic/Immunologic: Allergic/Immunologic: Reports no additional allergic/immunologic complaints PMFSH Past Medical History Medical History CAD (coronary artery disease) Carotid artery stenosis Chronic low back pain COPD (chronic obstructive pulmonary disease) Dyslipidemia Essential (primary) hypertension History of deep venous thrombosis (DVT) of distal vein of right lower extremity History of prostate cancer (~2006) s/p. radiation ALFREDO (obstructive sleep apnea) PAD (peripheral artery disease) Pre-diabetes Venous insufficiency of right leg Surgical History Surgical History History of angioplasty of peripheral vessel 08/24 - Left sup femoral and popliteal stent 2011 - stent in RLE artery History of back surgery (~1972) History of carpal tunnel release (~01/2006) History of coronary angioplasty (~1993) History of femoropopliteal bypass (~1978) Right - 1978, 1987 Hx of appendectomy (~1978) Family History Family History Father Family history of cardiovascular disease Mother Family history of malignant neoplasm of breast in first degree relative Social History Social History (Updated 05/23/22 @ 18:04 by Emma
--- NOTE | 2022-05-23 16:07 | ADMGEN ---
This patient, Kolby Dickey, was admitted to IMU Room 207-01 @ 1530.. IV CARDIZEM INFUSING AT 5MG / HR. Patient/family oriented to hospital policies and general routines including ID bracelet, bed and alarms, visiting hours, pain management, procedures, bathroom and other care routines, personal items, smoking policy, room service/diet, and visiting hours. Information on how to activate the Rapid Response Team has been discussed. Patient/Family are encouraged to report perceived risks to care and to ask questions if they do not understand what they are told or what they should do.
[2022-05-23 16:16] LABS: Troponin I 0.292 ng/mL (0.000-0.034)
--- NOTE | 2022-05-23 16:35 | PM.CNCAR ---
Assessment and Plan Assessment and plan (1) Atrial fibrillation with rapid ventricular response: Code(s): I48.91 - Unspecified atrial fibrillation <HOLDEN Abdullahi - Last Filed: 05/23/22 17:35> Status: Acute <HOLDEN Abdullahi - Last Filed: 05/23/22 17:35> Assessment and Plan: New onset of atrial fibrillation that by history occurred around 11:00 a.m. today. He has been placed on a diltiazem drip about his heart rate remains elevated, 140-150 beats per minute at times. He is currently asymptomatic despite being this tachycardic. I discussed with him the pathophysiology of atrial fibrillation as well as management strategies including rate control versus rhythm control. Since by his history the onset of his arrhythmia was this morning, the mutual decision was made to pursue rhythm control. I discussed the options pharmacologic rhythm control versus electrical cardioversion. I am going to start him on IV amiodarone in the hopes of chemical cardioversion. Since he has chronic lung disease, I do not wish to keep him on amiodarone long-term because of the risk of pulmonary toxicity. He verbalizes understanding of this risk and the plan and is in agreement. I also discussed with him the need for anticoagulation for stroke risk reduction. Will start him on Xarelto 20 mg daily. He is also on dual anti-platelet therapy because of his peripheral arterial disease and his coronary artery disease. Will discontinue his aspirin. Check echo. Check TSH. <HOLDEN Abdullahi - Last Filed: 05/23/22 17:35> (2) CAD (coronary artery disease): Qualifiers: Associated angina: without angina Coronary Disease-Associated Artery/Lesion type: [place] artery [place] vs. transplanted heart: [place] heart Qualified Code(s): I25.10 - Atherosclerotic heart disease of [place] coronary artery without angina pectoris <HOLDEN Abdullahi - Last Filed: 05/23/22 17:35> Code(s): I25.10 - Atherosclerotic heart disease of [place] coronary artery without angina pectoris <HOLDEN Abdullahi - Last Filed: 05/23/22 17:35> Status: Acute <HOLDEN Abdullahi - Last Filed: 05/23/22 17:35> Assessment and Plan: Coronary artery disease with history of remote PCI. He denies any chest pain, exertional dyspnea. His coronary disease seems to be stable. Continue statin and Plavix. As above, aspirin will be discontinued. <HOLDEN Abdullahi - Last Filed: 05/23/22 17:35> (3) Elevated troponin: Code(s): R77.8 - Other specified abnormalities of plasma proteins <HOLDEN Abdullahi - Last Filed: 05/23/22 17:35> Status: Acute <HOLDEN Abdullahi - Last Filed: 05/23/22 17:35> Assessment and Plan: First troponin in the emergency department was 0.020, 2nd troponin 0.292. His initial EKG did show ST depression in leads V3 through V6. This EKG was obtained in the setting of atrial fibrillation with RVR with heart rate of 144 beats per minute. He does have coronary disease. He was not experiencing any chest pain. This probably represents demand ischemia secondary to his underlying coronary disease and tachycardia. Will trend troponin. Repeat EKG. <HOLDEN Abdullahi - Last Filed: 05/23/22 17:35> Assessment and Plan: Attending addendum: I agree with the above documentation and plan of care as outlined. <Rodo Holguin MD - Last Filed: 05/23/22 18:16> History of Present Illness History of Present Illness Consult date/time: 05/23/22 16:35 <HOLDEN Abdullahi - Last Filed: 05/23/22 17:35> Requesting physician: Chapo Hendrickson MD <HOLDEN Abdullahi - Last Filed: 05/23/22 17:35> Consult reason: atrial fibrillation <HOLDEN Abdullahi - Last Filed: 05/23/22 17:35> Reason For Visit: Afib RVR <HOLDEN Abdullahi - Last Filed: 05/23/22 17:35> Narrative: Kolby Dickey is an 82-year-old male with coronary ar
--- NOTE | 2022-05-23 17:33 | ECG_ITS ---
Measurements Intervals [place] Rate: 49 P: 36 [place]: 196 QRS: 47 QRSD: 135 T: -4 QT: 472 QTc: 430 Interpretive Statements SINUS BRADYCARDIA INTRAVENTRICULAR CONDUCTION DELAY POSSIBLE ANTERIOR MYOCARDIAL INFARCTION INFERIOR MYOCARDIAL INFARCTION, PROBABLY OLD ABNORMAL ECG COMPARED TO ECG 05/23/2022 12:32:40 SINUS BRADYCARDIA NOW PRESENT INTRAVENTRICULAR CONDUCTION DELAY NOW PRESENT Electronically Signed On 05-25-2022 16:07:24 CDT by Rodo Holguin M.D.
[2022-05-23] MEDS: AMIODARONE 150 MG/D5W 100 ML 150 MG/100 ML BAG 600 MG IV CONT (18:27)
[2022-05-23] MEDS: RIVAROXABAN 20 MG TABLET PO (18:30)
[2022-05-23] MEDS: AMIODARONE 360 MG/D5W 200 ML 360 MG/200 ML BAG 33.33 MG IV CONT (18:38)
[2022-05-23] MEDS: LEVALBUTEROL NEB 1.25 MG/3 ML 0.63 MG INHALATION (20:48)
[2022-05-23] MEDS: ATORVASTATIN 40 MG TABLET PO (20:59)
[2022-05-23] MEDS: ASPIRIN 81 MG ENTERIC TABLET PO (21:00)
[2022-05-24] VITALS (21 sets, daily range): BP systolic 126–152; BP diastolic 44–92; PULSE 47–69; RESP 18–36; TEMP 35.7–36.6; O2SAT 95–100
--- NOTE | 2022-05-24 | ECHO_ITS ---
Patient Info Name: Kolby Dickey Age: 82 years : 1940 Gender: Male Ht: 71 in Wt: 221 lbs BSA: 2.27 m2 HR: 54 bpm BP: 126 / 69 mmHg Heart Rhythm: Sinus Rhythm Exam Date: 05/24/2022 8:38 AM Exam Location: [facility] Patient Status: Inpatient Admit Date: 05/23/2022 Staff Ordering Physician: Maday Victoria Ship Painter Helper: Jeovany Hugo, ADOLFO, RT Attending Provider: Evaristo Limon MD Referring Physician: Esme ALATORRE; Exam Type: CA echo doppler color flow Study Info Indications I48.1 - Persistent atrial fibrillation Complete two-dimensional, color flow and Doppler transthoracic echocardiogram is performed. Strain analysis performed. Summary 1. Complete two-dimensional, color flow and Doppler transthoracic echocardiogram is performed. 2. Left ventricular chamber dimension is normal. 3. Left ventricular systolic function is normal, estimated at 55-60%. 4. There is moderately increased left ventricular wall thickness. 5. Right ventricular systolic function is normal. 6. The mitral valve has thickened leaflets. 7. There is mild mitral valve regurgitation. Left Ventricle Left ventricular chamber dimension is normal. Left ventricular systolic function is normal, estimated at 55-60%. There is moderately increased left ventricular wall thickness. Global longitudinal strain is abnormal at -14 %. Right Ventricle Right ventricular chamber dimension is normal. Right ventricular systolic function is normal. Left Atria Left atrial chamber dimension is normal. Right Atria Right atrial chamber dimension is normal. Atrial Septum Intact interatrial septum visualized by color flow imaging. Aortic Valve The aortic valve is probable trileaflet. There is mild aortic valve sclerosis. There is no aortic valve stenosis. There is no aortic valve regurgitation. Pulmonic Valve The pulmonic valve is not well visualized. Mitral Valve The mitral valve has thickened leaflets. There is mild mitral valve regurgitation. Tricuspid Valve There is trace tricuspid valve regurgitation. Pericardium/Pleural The pericardium appears epicardial fat pad. There is no pericardial effusion. Inferior Vena Cava Normal inferior vena cava with >50% collapse upon inspiration consistent with normal right atrial pressure, 3 mmHg. Aorta The aortic root size at the sinus of Valsalva is normal. Tricuspid Valve Name Value Normal Estimated PAP/RSVP RA Pressure 3 mmHg <=5 Report Signatures
[2022-05-24] MEDS: LEVALBUTEROL NEB 1.25 MG/3 ML 0.63 MG INHALATION ×3 (02:41→13:51)
[2022-05-24] MEDS: IPRATROPIUM BR 0.02% INH SOLN 0.5 MG/2.5 ML VIAL INHALATION ×3 (02:42→13:51)
[2022-05-24 05:09] LABS: Basophils Absolute Auto 0.1 K/mm3 (0.0-0.1); Basophils Percent Auto 0.9 % (0.2-1.2); Eosinophils Absolute Auto 0.4 K/mm3 (0-0.3); Eosinophils Percent Auto 5.2 % (0-4.4); Hematocrit 43.8 % (42.0-52.0); Hemoglobin 14.5 g/dL (14.0-18.0); Immature Granulocyte Absolute 0.03 K/mm3 (0.00-0.031); Immature Granulocyte Percent A 0.4 % (0-0.5); Lymphocytes Absolute Auto 2.56 K/mm3 (0.9-3.2); Lymphocytes Percent Auto 31.2 % (18.3-44.2); Mean Corpuscular HGB Conc 33.1 g/dl (32-36); Mean Corpuscular Hemoglobin 30.4 pg (26-34); Mean Corpuscular Volume 91.8 fl (80-100); Mean Platelet Volume 9.6 fl (7.4-10.4); Monocytes Absolute Auto 0.9 K/mm3 (0.1-0.6); Monocytes Percent Auto 11.3 % (2.6-8.5); Neutrophils Absolute Auto 4.2 K/mm3 (1.3-6.7); Platelet Count Result 217 k/mm3 (150-375); Red Blood Count 4.77 M/mm3 (4.6-6.20); Red Cell Distribution Width 15.4 % (11.5-14.5); White Blood Count 8.2 K/mm3 (4.5-10.0)
[2022-05-24 05:18] LABS: Lactic Acid Reflex 1.3 mmol/L (0.7-2.0)
[2022-05-24 05:19] LABS: Alanine Aminotransferase 23 U/L (6-50); Albumin Level 3.9 g/dL (3.5-5.1); Alkaline Phosphatase 60 U/L (38-126); Anion Gap -1 mmol/L (8-16); Aspartate Amino Transferase 50 U/L (17-59); Bilirubin,Total 0.8 mg/dL (0.2-1.3); Blood Urea Nitrogen 20 mg/dL (9-20); Calcium 8.7 mg/dL (8.4-10.2); Carbon Dioxide 33 mmol/L (22-30); Chloride 104 mmol/L (98-107); Estimated CRCL calculation 51 ml/min; Estimated Glomerular Filt Rate 58; Glucose 116 mg/dL (65-110); Magnesium 2.3 mg/dL (1.6-2.3); Potassium 4.7 mmol/L (3.4-5.0); Sodium 136 mmol/L (137-145)
--- NOTE | 2022-05-24 08:22 | ECG_ITS ---
Measurements Intervals [place] Rate: 56 P: 58 [place]: 172 QRS: 23 QRSD: 130 T: 7 QT: 532 QTc: 514 Interpretive Statements SINUS BRADYCARDIA POSSIBLE ANTEROSEPTAL INFARCT, AGE INDETERMINATE INFERIOR MYOCARDIAL INFARCTION , PROBABLY OLD ABNORMAL ECG COMPARED TO ECG 05/23/2022 19:02:16 NO SIGNIFICANT CHANGES Electronically Signed On 05-25-2022 16:18:18 CDT by Rodo Holguin M.D.
--- NOTE | 2022-05-24 10:12 | PM.PNCARD ---
Progress Note: A&P Assessment and Plan (1) Atrial fibrillation with rapid ventricular response: Code(s): I48.91 - Unspecified atrial fibrillation Status: Acute Assessment and Plan: New onset of atrial fibrillation that by history occurred around 11:00 a.m. yesterday. Converted to sinus bradycardia last night on IV amiodarone. Amiodarone has been stopped. Will initiate low dose Toprol XL. Continue systemic a/c with Xarelto. (2) CAD (coronary artery disease): Qualifiers: Associated angina: without angina Coronary Disease-Associated Artery/Lesion type: [place] artery [place] vs. transplanted heart: [place] heart Qualified Code(s): I25.10 - Atherosclerotic heart disease of [place] coronary artery without angina pectoris Code(s): I25.10 - Atherosclerotic heart disease of [place] coronary artery without angina pectoris Status: Acute Assessment and Plan: Coronary artery disease with history of remote PCI. He denies any chest pain, exertional dyspnea. His coronary disease seems to be stable. Continue statin and Plavix. As above, aspirin will be discontinued. (3) Elevated troponin: Code(s): R77.8 - Other specified abnormalities of plasma proteins Status: Acute Assessment and Plan: Troponin trend 0.020, 0.292, 1.430, 2.610. His initial EKG did show ST depression in leads V3 through V6. This EKG was obtained in the setting of atrial fibrillation with RVR with heart rate of 144 beats per minute. He was not experiencing any chest pain. Repeat EKG in sinus rhythm with resolution of ST depression. This probably represents demand ischemia secondary to his underlying coronary disease and tachycardia. Continues to deny any complaint of chest pain. Will check another troponin this afternoon. Subjective Date/time seen: 05/24/22 10:12 Cardiology follow up for atrial fibrillation He converted to sinus rhythm last night. Remains in sinus rhythm/sinus leela off of amiodarone. He is feeling well this morning and has no complaints. He denies any chest pain, shortness of breath, palpitations. Review of Systems Review of Systems: All systems reviewed & are unremarkable except as noted in HPI and below Exam Const: General: comfortable, no acute distress, alert and awake Orientation/consciousness: patient oriented x3 HENMT: Head: normal to inspection Eyes: General: appearance normal, both eyes and all related structures Pupils: Equal, round and reactive pupils present Neck: Neck: normal visual inspection, supple and no JVD Carotids: normal carotid upstroke Resp: Effort & Inspection: normal respiratory effort Auscultation: clear to auscultation bilaterally Cardio: Rate: regular rate and bradycardic Rhythm: regular rhythm Heart sounds: S1 normal heart sound present, S2 normal heart sound present and no murmurs GI: Auscultation: normal bowel sounds Skin: General skin exam: normal color Neuro: General: patient oriented x3 Cranial nerves: Yes Equal, round and reactive pupils present Extrem: General: abnormal to inspection Other: chronic lower extremity edema and chronic skin changes associated with vascular disease Psych: Appearance: grossly normal Mental Status: mental status grossly normal Objective Data Vital Signs Vital Signs: Vital Signs - 24 hr 05/23/22 12:27 05/23/22 12:40 05/23/22 13:09 Temperature 36.6 C Pulse Rate 148 H 149 H Respiratory Rate 24 H 26 H Blood Pressure 103/85 Pulse Oximetry 96 Oxygen Delivery Room Air Room Air 05/23/22 13:19 05/23/22 14:13 05/23/22 13:00 Temperature Pulse Rate 14 L 122 H 145 H Respiratory Rate 24 H 18 Blood Pressure 116/76 95/76 L Pulse Oximetry 96 Oxygen Delivery 05/23/22 13:30 05/23/22 13:45 05/23/22 14:01 Temperature Pulse Rate 121 H 145 H 123 H Respiratory Rate 18 18 18 Blood Pressure 112/91 H 129/96 H 116/76 Pulse Oximetry 98 96 97 Oxygen Delivery 05/23/22
[2022-05-24] MEDS: CLOPIDOGREL BISULFATE 75 MG TABLET PO (10:18)
--- NOTE | 2022-05-24 16:51 | PM.IMPN ---
Progress Note: A&P Assessment and Plan (1) Elevated troponin: Code(s): R77.8 - Other specified abnormalities of plasma proteins Status: Acute Assessment and Plan: Patient presents with chest pain radiating to the left arm. Patient's troponin has increased to 2.6. EKG reviewed personally. On admission, EKG showed AFib with RVR rate of [address] depression in the anterior lateral leads. Echocardiogram has been ordered and is pending. Repeat EKG showing sinus rhythm with resolution of the ST depression. Patient has a history of coronary disease. Concerning for underlying ischemia that may be the etiology of his new onset AFib. Will discuss with Cardiology about ischemic evaluation while hospitalized. Continue Plavix, atorvastatin and metoprolol. Follow up on echo results. NPO after MN. (2) Atrial fibrillation with rapid ventricular response: Code(s): I48.91 - Unspecified atrial fibrillation Status: Acute Assessment and Plan: Patient with new onset atrial fibrillation present on admission. Patient was started on a Cardizem drip but blood pressure became soft so he was switched to amiodarone. Patient converted to normal sinus rhythm. The amiodarone has been stopped and he has been started on metoprolol. He has also been started on Xarelto but will change the dosing due to the DVT. TSH is normal. Echo pending. Patient with elevated troponin and EKG changes to suggest underlying ischemia which may be the etiology of his new onset AFib. Consider also occult PE. Continue anticoagulation. Continue metoprolol. Continue monitor on telemetry. Appreciate Cardiology input. (3) DVT (deep venous thrombosis): Code(s): I82.409 - Acute embolism and thrombosis of unspecified deep veins of unspecified lower extremity Status: Acute Assessment and Plan: Patient has a history of right lower extremity clots these might have been arterial. He is not on anticoagulation on admission but was on DAPT. He has no complaints of left lower extremity pain. No history of left lower extremity DVT. Left lower extremity venous Doppler in 2019 was negative. Bilateral lower extremity venous Doppler here shows patent right lower extremity veins. It does show a nonocclusive DVT in the mid left superficial femoral vein. Will have to assume this is acute. Will changes Xarelto to therapeutic doing for DVT. Check CTA for PE. (4) CAD (coronary artery disease): Qualifiers: Associated angina: without angina Coronary Disease-Associated Artery/Lesion type: [place] artery [place] vs. transplanted heart: [place] heart Qualified Code(s): I25.10 - Atherosclerotic heart disease of [place] coronary artery without angina pectoris Code(s): I25.10 - Atherosclerotic heart disease of [place] coronary artery without angina pectoris Status: Acute Assessment and Plan: He has a remote history of inferior CO status post balloon angioplasty in 1993. He has multiple risk factors. He remains on Plavix and atorvastatin. Aspirin was stopped since he is on Xarelto now. Metoprolol added. As above. (5) Venous insufficiency of right leg: Code(s): I87.2 - Venous insufficiency (chronic) (peripheral) Status: Acute Assessment and Plan: Patient has peripheral arterial disease with stents in the right lower extremity and hx of right femoropopliteal bypass. The patient has chronic edema to his right lower extremity for the last 6 years. Plan for medical management (6) COPD (chronic obstructive pulmonary disease): Qualifiers: COPD type: unspecified COPD Qualified Code(s): J44.9 - Chronic obstructive pulmonary disease, unspecified Code(s): J44.9 - Chronic obstructive pulmonary disease, unspecified Status: Acute Assessment and Plan: No wheezing appreciated. Continue Anoro. Change bronchodilators to p.r.n.. (7) Essential (primary) hypertension:
[2022-05-24] MEDS: SODIUM CHLORIDE 0.9% IV 1,000 ML 100 ML IV CONT (18:34)
[2022-05-24] MEDS: RIVAROXABAN 15 MG TABLET PO (18:37)
[2022-05-24] MEDS: ASPIRIN 81 MG ENTERIC TABLET PO (20:57)
[2022-05-24] MEDS: ATORVASTATIN 40 MG TABLET PO (20:57)
[2022-05-25] VITALS (14 sets, daily range): BP systolic 140–169; BP diastolic 60–76; PULSE 50–68; RESP 18–22; TEMP 36.1–36.5; O2SAT 91–100
[2022-05-25 05:03] LABS: Anion Gap 5 mmol/L (8-16); Blood Urea Nitrogen 17 mg/dL (9-20); Calcium 8.2 mg/dL (8.4-10.2); Carbon Dioxide 24 mmol/L (22-30); Chloride 107 mmol/L (98-107); Cholesterol 121 mg/dL (0-200); Estimated CRCL calculation 67 ml/min; Estimated Glomerular Filt Rate > 60; Glucose 101 mg/dL (65-110); HDL Direct 44 mg/dL; Potassium 4.1 mmol/L (3.4-5.0); Sodium 136 mmol/L (137-145); Triglycerides 71 mg/dL (<150)
[2022-05-25 05:14] LABS: LDL Cholesterol Direct 56 mg/dL
[2022-05-25] MEDS: IPRATROPIUM BR 0.02% INH SOLN 0.5 MG/2.5 ML VIAL INHALATION (07:20)
[2022-05-25] MEDS: UMECLIDINIUM/VILANTEROL 62.5-25 MCG ELLIPTA 1 PUFF INHALATION (07:20)
[2022-05-25] MEDS: LEVALBUTEROL NEB 1.25 MG/3 ML 0.63 MG INHALATION (07:20)
[2022-05-25] MEDS: METOPROLOL SUCCINATE EXT REL 25 MG TABCR PO (09:49)
[2022-05-25] MEDS: RIVAROXABAN 15 MG TABLET PO ×2 (09:50→17:33)
[2022-05-25] MEDS: CLOPIDOGREL BISULFATE 75 MG TABLET PO (09:50)
--- NOTE | 2022-05-25 17:06 | PM.DS ---
DS: Admitting Diagnosis Discharge Date 05/25/22 Admitting Diagnosis Chest pain DS: Discharge Diagnosis Discharge Diagnosis (1) Elevated troponin: Code(s): R77.8 - Other specified abnormalities of plasma proteins Status: Acute (2) Atrial fibrillation with rapid ventricular response: Code(s): I48.91 - Unspecified atrial fibrillation Status: Acute (3) DVT (deep venous thrombosis): Code(s): I82.409 - Acute embolism and thrombosis of unspecified deep veins of unspecified lower extremity Status: Acute (4) CAD (coronary artery disease): Qualifiers: Associated angina: without angina Coronary Disease-Associated Artery/Lesion type: [place] artery [place] vs. transplanted heart: [place] heart Qualified Code(s): I25.10 - Atherosclerotic heart disease of [place] coronary artery without angina pectoris Code(s): I25.10 - Atherosclerotic heart disease of [place] coronary artery without angina pectoris Status: Acute (5) Venous insufficiency of right leg: Code(s): I87.2 - Venous insufficiency (chronic) (peripheral) Status: Acute (6) COPD (chronic obstructive pulmonary disease): Qualifiers: COPD type: unspecified COPD Qualified Code(s): J44.9 - Chronic obstructive pulmonary disease, unspecified Code(s): J44.9 - Chronic obstructive pulmonary disease, unspecified Status: Acute (7) Essential (primary) hypertension: Code(s): I10 - Essential (primary) hypertension Status: Acute (8) ALFREDO (obstructive sleep apnea): Code(s): G47.33 - Obstructive sleep apnea (adult) (pediatric) Status: Acute (9) Dyslipidemia: Code(s): E78.5 - Hyperlipidemia, unspecified Status: Acute DS: Summary Hospital Course Reason for hospitalization: 82yo male with CAD, PAD, COPD and HTN here for chest pain. Please see H&P for details. Hospital Course: Patient presents with chest pain radiating to the left arm.? Patient's troponin increased to 2.6.? On admission, EKG showed AFib with RVR rate of [address] depression in the anterior lateral leads.?After he converted, repeat EKG showing sinus rhythm with resolution of the ST depression. Echo showing EF 55-60% and no focal wall motion abnormalities. Patient has a history of coronary disease.? Concerning for underlying ischemia that may be the etiology of his new onset AFib.? Discussed with Cardiology about ischemic evaluation while hospitalized but they felt not necessary at this time.? We continued Plavix, atorvastatin and metoprolol.?ASA stopped in lieu of Xarelto. Patient with new onset atrial fibrillation present on admission.? Patient was started on a Cardizem drip but blood pressure became soft so he was switched to amiodarone.? Patient converted to normal sinus rhythm.?TSH normal. CTA negative for PE. The amiodarone was stopped and he has been started on metoprolol.? He was also started on Xarelto but dosing changed since he was found to have LLE DVT. Bilateral lower extremity venous Doppler here shows patent right lower extremity veins.? It does show a nonocclusive DVT in the mid left superficial femoral vein.?Patient has a history of right lower extremity clots but these might have been arterial.? He was not on anticoagulation on admission but was on DAPT.? He has no complaints of left lower extremity pain. Left lower extremity venous Doppler in 2019 was negative.? Will have to assume this is an acute DVT.? Xarelto changed to therapeutic dosing for DVT.? He overall did well and was able to be discharged home on 05/25/22. Status at Discharge Cognitive/behavioral status at discharge: Stable Time Spent with Patient Time attestation: Total time spent providing and/or coordinating discharge services: 35 minutes Time spent: Greater than 30 minutes Exam Narrative: AF 97.1 140/76 54 20 96% ra Gen - NARD Chest - few basilar rhonchi o/w clear. CV - RRR S1/S2. Telemetry
== END 2022-05-25 18:35 | disposition home or self-care (01) | DRG 309 ==
LOC: ANHED 12:42 → ANHIMU 14:44
PROVIDERS: Nurse Practitioner; Admitting Provider Internal Medicine; Emergency Provider Emergency Medicine; PCP Family Medicine; Visit Provider Internal Medicine
DX: I48.91 Unspecified atrial fibrillation (principal); I82.412 Acute embolism and thrombosis of left femoral vein; E78.5 Hyperlipidemia, unspecified; F17.210 Nicotine dependence, cigarettes, uncomplicated; G47.33 Obstructive sleep apnea (adult) (pediatric); G89.29 Other chronic pain; I25.10 Atherosclerotic heart disease of native coronary artery without angina pectoris; I25.2 Old myocardial infarction; I10 Essential (primary) hypertension; I65.29 Occlusion and stenosis of unspecified carotid artery; M54.9 Dorsalgia, unspecified; J44.9 Chronic obstructive pulmonary disease, unspecified; I73.9 Peripheral vascular disease, unspecified; R77.8 Other specified abnormalities of plasma proteins; Z79.02 Long term (current) use of antithrombotics/antiplatelets; Z79.82 Long term (current) use of aspirin; Z95.820 Peripheral vascular angioplasty status with implants and grafts; Z99.89 Dependence on other enabling machines and devices; Z85.46 Personal history of malignant neoplasm of prostate; Z86.718 Personal history of other venous thrombosis and embolism; Z90.49 Acquired absence of other specified parts of digestive tract
CPT/HCPCS: 36415; 71046; 71275; 80048; 80053; 80061; 83605; 83690; 83735; 84443; 84484; 85025; 85610; 85730; 93005; 93306; 93970; 94640; 96374; 96375; 96376; 99285; A9270; G0378; G0379; J0282; J7030; Q9967

== ENCOUNTER 2022-10-01 16:35 | Emergency (ER) | payer MEDICARE, BC, SELFPAY ==
[2022-10-01 16:40] VITALS: BP 145/70; PULSE 67; RESP 20; TEMP 36.3; O2SAT 95
--- NOTE | 2022-10-01 16:55 | ED.BACK ---
HPI - Back Pain/Injury General Chief Complaint: Back Pain/Injury Stated Complaint: sore back Time Seen by Provider: 10/01/22 16:58 Source: patient and RN notes reviewed Mode of arrival: ambulatory Limitations: no limitations History of Present Illness HPI Narrative: 82-year-old male presents with concern for left low back pain that started on Saturday. 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 Reports he bowel to the abdominal on a lawnmower. Reports he has had back pain from this before. He denies loss of bowel or bladder function, perianal anesthesia, abdominal pain, fever. He denies weakness in any extremity. He has not taken any medication for his symptoms MD elicited complaint: back pain Related Data Home Medications Medication Instructions Recorded Confirmed clopidogrel 75 mg tablet (Plavix) 75 mg PO DAILY 11/10/20 10/01/22 nitroglycerin 0.4 mg sublingual 0.4 mg sublingual Q5M PRN Chest 07/27/21 10/01/22 tablet Pain umeclidinium 62.5 mcg-vilanterol 1 inh inhalation DAILY 01/25/22 10/01/22 25 mcg/actuation powdr for inhalation (Anoro Ellipta) atorvastatin 40 mg tablet 40 mg PO QHS 06/05/22 10/01/22 Allergies Allergy/AdvReac Type Severity Reaction Status Date / Time No Known Allergies Allergy Verified 10/01/22 16:57 Review of Systems Review of Systems: CONSTITUTIONAL: Denies malaise, chills, sweats, or fever. CARDIOVASCULAR: Denies chest pain, palpitations, or edema. RESPIRATORY: Denies cough or dyspnea. GASTROINTESTINAL: Denies abdominal pain, nausea, vomiting, diarrhea, loss of bowel function GENITOURINARY: Denies dysuria, hematuria, frequency, loss of bladder function. SKIN: Denies rash or itching. MUSCULOSKELETAL: Reports left low back pain NEUROLOGIC: Denies numbness, weakness, or headache. All systems reviewed & are unremarkable except as noted in HPI and below [facility] Past Medical History Medical History Atrial fibrillation (~05/2022) CAD (coronary artery disease) Carotid artery stenosis Chronic low back pain COPD (chronic obstructive pulmonary disease) Dyslipidemia Essential (primary) hypertension History of deep venous thrombosis (DVT) of distal vein of right lower extremity (~2012) History of prostate cancer (~2006) s/p. radiation ALFREDO (obstructive sleep apnea) PAD (peripheral artery disease) Pre-diabetes Recurrent deep vein thrombosis (DVT) Venous insufficiency of right leg Surgical History Surgical History History of angioplasty of peripheral vessel 08/24 - Left sup femoral and popliteal stent 2011 - stent in RLE artery History of back surgery (~1972) History of carpal tunnel release (~01/2006) History of coronary angioplasty (~1993) History of femoropopliteal bypass (~1978) Right - 1978, 1987 Hx of appendectomy (~1978) Family History Family History Father Family history of cardiovascular disease Mother Family history of malignant neoplasm of breast in first degree relative Social History Social History Social History: He lives with . He has 3 sons . He is retired from [employer] industry. 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
== END 2022-10-01 17:12 | disposition home or self-care (01) ==
PROVIDERS: Emergency Provider Nurse Practitioner; PCP Family Medicine
DX: M54.50 Low back pain, unspecified (principal); I48.91 Unspecified atrial fibrillation; I25.10 Atherosclerotic heart disease of native coronary artery without angina pectoris; J44.9 Chronic obstructive pulmonary disease, unspecified; E78.5 Hyperlipidemia, unspecified; I10 Essential (primary) hypertension; Z86.718 Personal history of other venous thrombosis and embolism; I73.9 Peripheral vascular disease, unspecified; R73.03 Prediabetes; I87.2 Venous insufficiency (chronic) (peripheral); Z85.46 Personal history of malignant neoplasm of prostate; Z95.1 Presence of aortocoronary bypass graft; Z95.820 Peripheral vascular angioplasty status with implants and grafts
CPT/HCPCS: 99213; G0463

== ENCOUNTER 2023-07-06 08:04 | Emergency (ER) | payer MEDICARE, BC, SELFPAY ==
[2023-07-06 08:19] VITALS: BP 123/50; PULSE 82; RESP 20; TEMP 36.4; O2SAT 95
--- NOTE | 2023-07-06 08:20 | ED.GENADULT ---
HPI - General Adult General Chief complaint: Urogenital-Male Stated complaint: Body Aches/Left Flank Pain Time Seen by Provider: 07/06/23 08:25 Source: patient, RN notes reviewed and old records reviewed Mode of arrival: ambulatory Limitations: no limitations History of Present Illness HPI narrative: 83 year old male who presents to express care with complaints of left hip pain since yesterday morning feels like it catches no known recent injury. Patient reports that he did fall 3.5 weeks ago at home and hit hip on couch but did not have any further discomfort to hip immediately after fall. Patient reports that he has had left flank pain which radiates to left side along ribs and left mid abdomen since beginning of June, patient does display some lateral rib discomfort on palpation. Patient has history of previous [place] with angioplasty and PVD with stenting to right leg, has had previous clots to right leg and history of atrial fib. Patient denies any noted blood in urine, states some burning with his urination if he has a beer. no fevers,chills or sweats reported, has had past prostate cancer with radiation seeds implanted. Patient continues to smoke a pack of cigarettes daily and has smoked for close to 60+ years. 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 MD complaint: left hip pain and left flank pain with radiation to lateral ribs/ abdomen Onset (ago): week(s) (hip since yesterday morning, since first part of June left flank pain) Severity: moderate Quality: aching Treatments prior to arrival: none Related Data Home Medications Medication Instructions Recorded Confirmed clopidogrel 75 mg tablet (Plavix) 75 mg PO DAILY 11/10/20 10/01/22 nitroglycerin 0.4 mg sublingual 0.4 mg sublingual Q5M PRN Chest 07/27/21 10/01/22 tablet Pain umeclidinium 62.5 mcg-vilanterol 1 inh inhalation DAILY 01/25/22 10/01/22 25 mcg/actuation powdr for inhalation (Anoro Ellipta) atorvastatin 40 mg tablet 40 mg PO QHS 06/05/22 10/01/22 Allergies Allergy/AdvReac Type Severity Reaction Status Date / Time No Known Allergies Allergy Verified 10/01/22 16:57 Review of Systems Review of Systems: CONSTITUTIONAL: Denies fever, chills, or sweats. EYES: Denies visual changes, redness, or discharge. ENT: Denies rhinorrhea, congestion, sore throat, or otalgia. CARDIOVASCULAR: Denies chest pain, palpitations, or edema. RESPIRATORY: Denies cough or acute dyspnea. GASTROINTESTINAL: Denies abdominal pain, nausea, vomiting, or diarrhea. GENITOURINARY: Denies dysuria or hematuria.some burning with urine and CVA tenderness left SKIN: Denies rash or itching. MUSCULOSKELETAL: Reports some chronic back pain, positive for left hip joint pain with no radiation to groin, or myalgia. NEUROLOGIC: Denies headache, numbness, or weakness. PSYCHIATRIC: Denies anxiety or depression. All systems reviewed & are unremarkable except as noted in HPI and below [facility] Past Medical History Medical History Atrial fibrillation (~05/2022) CAD (coronary artery disease) Carotid artery stenosis Chronic low back pain COPD (chronic obstructive pulmonary disease) Dyslipidemia Essential (primary) hypertension History of deep venous thrombosis (DVT) of distal vein of right lower extremity (~2012) History of prostate cancer (~2006) s/p. radiation ALFREDO (obstructive sleep apnea) PAD (peripheral artery disease) Pre-diabetes Recurrent deep vein thrombosis (DVT) Venous insufficiency of right leg Surgical History Surgical History History of angioplasty of peripheral vessel 08/24 - Left sup femoral and popliteal stent 2011 - stent in RLE artery History of back surgery (~1972) History of carpal tunnel release (~01/2006) History of coronary angioplasty (~1993) History of femoropopliteal bypass (~1978) Right - 1978,
== END 2023-07-06 08:58 | disposition short-term general hospital (02) ==
LOC: EXPBETH 08:08
PROVIDERS: Emergency Provider Registered Nurse
DX: M25.552 Pain in left hip (principal); R10.9 Unspecified abdominal pain; W19.XXXA Unspecified fall, initial encounter; I25.10 Atherosclerotic heart disease of native coronary artery without angina pectoris; E78.5 Hyperlipidemia, unspecified; I10 Essential (primary) hypertension; Z86.718 Personal history of other venous thrombosis and embolism; Z85.46 Personal history of malignant neoplasm of prostate; G47.33 Obstructive sleep apnea (adult) (pediatric); Z79.02 Long term (current) use of antithrombotics/antiplatelets; F17.210 Nicotine dependence, cigarettes, uncomplicated
CPT/HCPCS: 81003; 99212; G0463

== ENCOUNTER 2023-07-06 09:34 | Emergency (ER) | payer MEDICARE, BC, SELFPAY ==
--- NOTE | ~2023-07-06 | CT_ITS ---
EXAMINATION: CT chest abdomen pelvis w con DATE: 07/06/2023 11:40 INDICATION: Blunt trauma. Hematuria. Fall. Left hip pain. TECHNIQUE: Computed tomography (CT) of the chest, abdomen, and pelvis was performed with 100 mL of Om nipaque 350 intravenous contrast. Automated exposure control and iterative reconstruction technique w ere employed. The dose-length product was 1003.42 mGy-cm. COMPARISON: Chest CT 05/24/2022, CT abdomen and pelvis 05/25/2021 FINDINGS: CHEST CT: There is mild emphysema. The lungs demonstrate mild atelectasis. There is mild scarring in paraspinal right lower lobe. No pleural effusion. Cardiomegaly is noted. There are coronary artery calcificatio ns. No pericardial effusion. There is calcified atherosclerosis of the aorta and many of the other ar teries. There is mild thoracic spondylosis. ABDOMEN/PELVIS CT: The liver, gallbladder, pancreas, and right adrenal gland are normal. There is a chronic 10 mm mass i n left adrenal gland, likely an adenoma. Calcifications in the spleen are consistent with old granulo matous disease. There are cysts in the kidneys measuring up to 2.0 cm on the right. There are brachyt herapy seeds in the prostate. There is diffuse bladder wall thickening, likely secondary to chronic o utlet obstruction. There is a right inguinal hernia containing fat. Prominent fat in left inguinal ca nal may be a hernia. There are no dilated loops of bowel. The appendix is normal. There is calcified atherosclerosis of the aorta and many of the other arteries. There are no pathologically enlarged lym ph nodes. There is no free intraperitoneal fluid. There is a supraumbilical ventral hernia containing fat. There is severe lumbar spondylosis. There is moderate osteoarthritis of the hips. IMPRESSION: 1. Mild emphysema. 2. Supraumbilical ventral hernia containing fat. 3. Right inguinal hernia containing fat. Reviewed, dictated and finalized at location A.
--- NOTE | ~2023-07-06 | XR_ITS ---
EXAMINATION: XR hip LT min 3V w AP pelvis DATE: 07/06/2023 11:52 INDICATION: Left hip pain. Fall. TECHNIQUE: An anteroposterior view of the pelvis and 3 views of left hip were obtained. COMPARISON: Pelvis radiograph 06/21/2007 FINDINGS: There is lumbar levocurvature and severe spondylosis. No fracture. There is moderate osteoa rthritis of the hips. There are brachytherapy seeds in the prostate. There is a surgical clip in righ t abdomen. IMPRESSION: 1. Moderate osteoarthritis of the hips. Reviewed, dictated and finalized at location A.
[2023-07-06 09:38] VITALS: BP 127/56; PULSE 60; RESP 16; TEMP 36.6; O2SAT 97
--- NOTE | 2023-07-06 10:06 | ED.MALEGU ---
HPI - Male Genitourinary General Chief complaint: Urogenital-Male Stated complaint: flank pain, blood in urine Time Seen by Provider: 07/06/23 10:04 History of Present Illness HPI Narrative: Patient is an 83 year old male with history of CAD, PAD and PVD with prior stenting to right leg, afib, HTN, COPD, DVT here from urgent care for hematuria. Patient notes that he has been struggling with left flank pain for the last 5-6 years which worsened 3-4 weeks ago after a fall. Pain starts around lower left ribs and radiates forward into his left abdomen. He notes pain is worse with movement. He denies increased urinary frequency, does note some dysuria when drinks alcohol. He does have a history of prostate cancer, followed with Dr. Noble in the past, has not seen him for 15 years, status post radiation seed implantation. He is an active smoker. He initially presented to urgent care for left hip pain. This hip pain began yesterday when he woke up. Notes it feels like a clicking sensation that is worse when he tries to move around after being sedentary and improves with increased movements. He does note that he had a mechanical trip and fall into the side of a couch about 3-4 weeks ago. He hit from his left flank down to his left hip on the arm of the sofa. He was not seen after this injury. No prior orthopedic surgeries. He is on plavix. Related Data Home Medications Medication Instructions Recorded Confirmed clopidogrel 75 mg tablet (Plavix) 75 mg PO DAILY 11/10/20 10/01/22 nitroglycerin 0.4 mg sublingual 0.4 mg sublingual Q5M PRN Chest 07/27/21 10/01/22 tablet Pain umeclidinium 62.5 mcg-vilanterol 1 inh inhalation DAILY 01/25/22 10/01/22 25 mcg/actuation powdr for inhalation (Anoro Ellipta) atorvastatin 40 mg tablet 40 mg PO QHS 06/05/22 10/01/22 Allergies Allergy/AdvReac Type Severity Reaction Status Date / Time No Known Allergies Allergy Verified 10/01/22 16:57 Review of Systems Review of Systems: All systems reviewed & are unremarkable except as noted in HPI and below PMFSH Past Medical History Medical History Atrial fibrillation (~05/2022) CAD (coronary artery disease) Carotid artery stenosis Chronic low back pain COPD (chronic obstructive pulmonary disease) Dyslipidemia Essential (primary) hypertension History of deep venous thrombosis (DVT) of distal vein of right lower extremity (~2012) History of prostate cancer (~2006) s/p. radiation ALFREDO (obstructive sleep apnea) PAD (peripheral artery disease) Pre-diabetes Recurrent deep vein thrombosis (DVT) Venous insufficiency of right leg Surgical History Surgical History History of angioplasty of peripheral vessel 08/24 - Left sup femoral and popliteal stent 2011 - stent in RLE artery History of back surgery (~1972) History of carpal tunnel release (~01/2006) History of coronary angioplasty (~1993) History of femoropopliteal bypass (~1978) Right - 1978, 1987 Hx of appendectomy (~1978) Family History Family History Father Family history of cardiovascular disease Mother Family history of malignant neoplasm of breast in first degree relative Social History Social History Social History: He lives with . He has 3 sons . He is retired from [employer] industry. code status: full code Smoking packs per day: 1 Smoking cigarettes per day: 20.0 Years smoked: 68 Smoking pack-years: 68.00 Smoking status: Current every day smoker Tobacco type: cigarettes Second hand tobacco smoke exposure: Yes Alcohol intake: current Drinks per week: 1 Substance use: never Substance use type: does not use Lack of Transportation: No Lack of Food: Never True Current Housing: I Have Housing Concerned About Future [facility]
[2023-07-06 10:51] LABS: Basophils Absolute Auto 0.1 K/mm3 (0.0-0.1); Basophils Percent Auto 0.9 % (0.2-1.2); Eosinophils Absolute Auto 0.4 K/mm3 (0-0.3); Eosinophils Percent Auto 5.2 % (0-4.4); Hemoglobin 15.4 g/dL (14.0-18.0); Immature Granulocyte Absolute 0.02 K/mm3 (0.00-0.031); Immature Granulocyte Percent A 0.3 % (0-0.5); Lymphocytes Absolute Auto 2.17 K/mm3 (0.9-3.2); Lymphocytes Percent Auto 28.3 % (18.3-44.2); Mean Corpuscular HGB Conc 32.8 g/dl (32-36); Mean Corpuscular Hemoglobin 28.9 pg (26-34); Mean Corpuscular Volume 88.3 fl (80-100); Mean Platelet Volume 10.1 fl (7.4-10.4); Monocytes Absolute Auto 0.8 K/mm3 (0.1-0.6); Monocytes Percent Auto 10.5 % (2.6-8.5); Neutrophils Absolute Auto 4.2 K/mm3 (1.3-6.7); Neutrophils Percent Auto 54.8 % (45.5-73.1); Platelet Count Result 241 k/mm3 (150-375); Red Blood Count 5.32 M/mm3 (4.6-6.20); Red Cell Distribution Width 15.3 % (11.5-14.5); White Blood Count 7.7 K/mm3 (4.5-10.0)
[2023-07-06 10:53] LABS: Appearance Urine Clear (Clear); Bilirubin Urine Negative (Negative); Blood Urine Negative (Negative); Color Urine Yellow (Yellow); Glucose Urine UA Negative (Negative); Ketones Urine Negative (Negative); Leukocyte Esterase Ur Negative LEU/UL (Negative); Nitrate Urine Negative (Negative); Protein Urine Negative (Negative); Specific Grav Ur 1.018 (1.001-1.035); pH Urine 6.5 (5.0-9.0)
[2023-07-06 11:00] LABS: Alanine Aminotransferase 19 U/L (6-50); Albumin Level 4.4 g/dL (3.5-5.1); Alkaline Phosphatase 65 U/L (38-126); Anion Gap 7 mmol/L (4-12); Aspartate Amino Transferase 29 U/L (17-59); Bilirubin,Total 0.7 mg/dL (0.2-1.3); Blood Urea Nitrogen 22 mg/dL (9-20); Calcium 9.1 mg/dL (8.4-10.2); Carbon Dioxide 27 mmol/L (22-30); Chloride 106 mmol/L (98-107); Estimated CRCL calculation 60 ml/min; Estimated Glomerular Filt Rate > 60; Glucose 121 mg/dL (65-110); Potassium 4.4 mmol/L (3.4-5.0); Sodium 140 mmol/L (137-145)
[2023-07-06 11:01] LABS: INR 0.9; Prothrombin Time 12.4 Seconds (11.1-14.7)
[2023-07-06 11:03] LABS: Partial Thromboplastin Time 26.5 Seconds (22.3-36.8)
[2023-07-06 11:18] LABS: Add Urine Microscopic? NO
== END 2023-07-06 13:18 | disposition home or self-care (01) ==
PROVIDERS: Emergency Medicine; Emergency Provider Student in an Organized Health Care Education/Training Program; PCP Family Medicine
DX: R10.9 Unspecified abdominal pain (principal); M25.552 Pain in left hip; I25.10 Atherosclerotic heart disease of native coronary artery without angina pectoris; I65.29 Occlusion and stenosis of unspecified carotid artery; I10 Essential (primary) hypertension; I87.2 Venous insufficiency (chronic) (peripheral); I73.9 Peripheral vascular disease, unspecified; J44.9 Chronic obstructive pulmonary disease, unspecified; E78.5 Hyperlipidemia, unspecified; G47.33 Obstructive sleep apnea (adult) (pediatric); R73.03 Prediabetes; Z95.1 Presence of aortocoronary bypass graft; Z95.5 Presence of coronary angioplasty implant and graft; I48.91 Unspecified atrial fibrillation; Z86.718 Personal history of other venous thrombosis and embolism; Z85.46 Personal history of malignant neoplasm of prostate; Z92.3 Personal history of irradiation; F17.210 Nicotine dependence, cigarettes, uncomplicated; M16.0 Bilateral primary osteoarthritis of hip; J43.9 Emphysema, unspecified; K43.9 Ventral hernia without obstruction or gangrene; K40.90 Unilateral inguinal hernia, without obstruction or gangrene, not specified as recurrent
CPT/HCPCS: 36415; 71260; 73502; 74177; 80053; 81003; 85025; 85610; 85730; 99284; Q9967

== ENCOUNTER 2023-10-02 08:57 | Outpatient (CLI) | payer MEDICARE, BC, SELFPAY ==
--- NOTE | 2023-10-02 09:09 | ECG_ITS ---
Test Date: 2023-10-02 09:16:58 Measurements Intervals [place] Rate: 49 P: 49 VT: 183 QRS: 0 QRSD: 132 T: 38 QT: 488 QTc: 442 Interpretive Statements SINUS BRADYCARDIA WITH SINUS ARRHYTHMIA INTRAVENTRICULAR CONDUCTION DELAY [130+ ms QRS DURATION] POSSIBLE ANTERIOR MYOCARDIAL INFARCTION [30 ms Q WAVE IN V3/V4, OR R < 0.2 mV IN V4], OF INDETERMINATE AGE INFERIOR MYOCARDIAL INFARCTION [40+ ms Q WAVE AND/OR ST/T ABNORMALITY IN II/aVF], OF INDETERMINATE AGE No previous ECG available for comparison Electronically Signed On 10-02-2023 16:17:50 CDT by Hu Simmons M.D.
== END 2023-10-02 08:58 | disposition home or self-care (01) ==
PROVIDERS: PCP Family Medicine; Visit Provider Urology
DX: I25.10 Atherosclerotic heart disease of native coronary artery without angina pectoris (principal); I45.9 Conduction disorder, unspecified
CPT/HCPCS: 93005

== ENCOUNTER 2023-10-03 01:44 | Day surgery (SDC) | payer MEDICARE, BC, SELFPAY ==
[2023-10-01 13:39] VITALS: BMI 30.7
--- NOTE | 2023-10-01 14:02 | PC.NURSE ---
Report to the Outpatient Waiting Room, entrance under the green pavilion located off [facility], at time ___06:15am____ on date __10/03/23 . Planned Procedure Time: ___08:15am . Time changes happen often and if your time is changed the preop area will call you the afternoon before. - You and your visitor will be asked to self-screen and do not enter if you have any COVID symptoms. - A mask is optional within the hospital at this time. Patients may have clear liquids (water, carbonated beverages, clear teas, apple juice) until 3 hours prior to surgery ( 05:15am) with a maximum of 20 ounces. - No food from midnight until time of surgery Take the following medications with a SIP of water the morning of surgery: __Pt to use inhaler as prescribed. DO NOT STOP ANY OF YOUR OTHER PRESCRIPTION MEDICATIONS PRIOR TO SURGERY ?EXCEPT THE FOLLOWING Medications to discontinue per physician Plavix for 7 days prior to surgery per Dr Noble Date to take last dose 09/25/23 Please no make-up, nail chinese, hairspray, perfume, deodorant, or body powder the day of surgery. No jewelry (including any body piercings) or valuables the day of surgery, leave them at home. Please take a shower or bath the night before, or the morning of, surgery with an antibacterial soap. Wear comfortable, loose fitting clothing. Children are encouraged to wear pajamas. - Jewelry must be removed prior to entering the operating room. Rings and piercings that are not removed may be cut off. - The hospital will not accept responsibility for valuables. - Please leave all valuables, including medications, at home the day of surgery. If you are going home after surgery, a licensed hazmat truck driver must drive you home. - NO public transportation without another adult if you receive anesthesia. - We recommend that an adult stay with you for 24 hours following discharge. - We also recommend that you do not drive, make important decision, drink alcoholic beverages, or take any drugs that were not prescribed by your health care provider for at least 24 hours after your discharge time. For Pediatric surgeries, we recommend two adults accompany the child home. Follow any additional instructions given to you from your surgeon. If you or anyone in your household have experienced Covid symptoms in the past week, please notify your surgeon or the nurse liaison at the phone number below for possible testing. Telephone instructions given to __patient and asked if any additional questions and then verbalized understanding. Patient advised to call surgeon office or pre surgery nurse liaison [phone] if any additional questions.
[2023-10-03] VITALS (11 sets, daily range): BP systolic 127–183; BP diastolic 48–107; PULSE 48–59; RESP 12–18; TEMP 36.1; O2SAT 94–100
--- NOTE | 2023-10-03 06:04 | WPDHPUPDATE1 ---
History and Physical Update Update Date/Time: 10/03/23 06:04 History and Physical has been reviewed, including an updated exam of the patient. There are NO changes in the patient's condition. Risks, benefits, and alternatives have been discussed and questions answered. Patient agrees to proceed with procedure.
[2023-10-03] MEDS: LACTATED RINGERS 1,000 ML 30 ML IV CONT (06:45)
--- NOTE | 2023-10-03 07:52 | WPDANESEPPF ---
Anes - Initial Pre Proc Eval Procedure: Operation Date: 10/03/23 08:15 Proposed Procedures p Trans Urethral Resection Bladder Tumor with Gemcitabine Instillation - Corey Noble MD Date/Time: 10/03/23 07:52 Surgeon: Corey Noble MD Pre Op Diagnosis: Bladder Tumor Patient Data Age: 83 Gender: M Height: 1.8 m Weight: 99.7 kg Allergies Allergy/AdvReac Type Severity Reaction Status Date / Time No Known Allergies Allergy Verified 10/01/23 14:02 Home Medications Medication Instructions Recorded Confirmed Type clopidogrel 75 mg tablet (Plavix) 75 mg PO DAILY 11/10/20 10/01/23 History umeclidinium 62.5 mcg-vilanterol 1 inh inhalation DAILY 01/25/22 10/01/23 History 25 mcg/actuation powdr for inhalation (Anoro Ellipta) atorvastatin 40 mg tablet 40 mg PO QHS 06/05/22 10/01/23 History metoprolol succinate 25 mg 25 mg PO HS 10/01/23 10/01/23 History tablet,extended release 24 hr (Toprol XL) oxybutynin chloride 5 mg 5 mg PO HS 10/01/23 10/01/23 History tablet,extended release 24 hr Patient hx anesthesia problems: none Family hx anesthesia problems: none Results Review: All pre-operative results and documents have been reviewed as part of the pre-operative evaluation. [facility] Past Medical History Medical History Atrial fibrillation (~05/2022) CAD (coronary artery disease) Carotid artery stenosis Chronic low back pain COPD (chronic obstructive pulmonary disease) Dyslipidemia Essential (primary) hypertension History of deep venous thrombosis (DVT) of distal vein of right lower extremity (~2012) History of prostate cancer (~2006) s/p. radiation ALFREDO (obstructive sleep apnea) PAD (peripheral artery disease) Pre-diabetes Recurrent deep vein thrombosis (DVT) Venous insufficiency of right leg Surgical History Surgical History History of angioplasty of peripheral vessel 08/24 - Left sup femoral and popliteal stent 2011 - stent in RLE artery History of back surgery (~1972) History of carpal tunnel release (~01/2006) History of coronary angioplasty (~1993) History of femoropopliteal bypass (~1978) Right - 1978, 1988 Hx of appendectomy (~1978) Family History Family History Father Family history of cardiovascular disease Mother Family history of malignant neoplasm of breast in first degree relative Social History Social History Social History: He lives with . He has 3 sons . He is retired from [employer] code status: full code Caffeine-decaf coffee Smoking packs per day: 1 Smoking cigarettes per day: 20.0 Years smoked: 69 Smoking pack-years: 69.00 Smoking status: Current every day smoker Tobacco type: cigarettes Second hand tobacco smoke exposure: Yes Alcohol intake: current Drinks per week: 1 Alcohol use details: social-beer Substance use: never Substance use type: does not use Do You Feel Safe in your Home?: Yes Lack of Transportation: No Lack of Food: Never True Current Housing: I Have Housing Concerned About Future Housing: No Difficulty Paying Gas/Electric Bills: No Difficulty Paying for Meds: No Currently Unemployed: No Education: Associate Degree Difficulty w/ Childcare or Family Care: No Living arrangements: with family Additional living arrangements comments: Occupation/Education: retired Gender identity (if verbalized by the patient): Male Sexual Orientation (if Verbalized by the Patient): Straight or Heterosexual Spiritual care concerns: No Agree to blood products: Yes Anes - Eval Final PreProcedure Day of Procedure 10/03/23 07:52 Patient weight: overweight Heart: regular rate and rhythm Lungs: clear to auscult
[2023-10-03] MEDS: ceFAZolin 2 GM/D5W 50 ML 2 GM/50 ML BAG IVPB (08:06)
[2023-10-03] MEDS: LIDOCAINE HCL 2% GEL UROJET 10 ML PKG MUCOUS MEM (08:15)
--- NOTE | 2023-10-03 08:37 | W.PM.PROC2 ---
Procedure Note - Detailed Date of Procedure 10/03/23 Pre-op Diagnosis Bladder Tumor Post-op Diagnosis Same Procedure Performed TURBT (medium, 3 cm) Surgeon Corey Noble MD Anesthesia General Description of Procedure patient is brought to the operative suite where he has prepped draped in routine sterile fashion while in dorsal lithotomy position after the uneventful induction of a general LMA anesthetic. Twenty-four F resectoscope was placed in his bladder. 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 There was some mild hyperemia at the periphery of this and that site was sampled as well. The entire base and periphery was cauterized with a rollerball. The remainder of the bladder mucosa was without hyperemia or suspicious findings. He had a single orthotopic ureteral orifice bilaterally which were was identified and preserved throughout. Determination a 18F coude catheter was placed to drainage. The patient tolerated the procedure well was taken recovery room good condition Drains Yes Packing No Pathology Yes Complications No immediate complications Condition Stable Disposition PACU
--- NOTE | 2023-10-03 08:43 | W.PM.PROC2 ---
Procedure Note - Detailed Date of Procedure 10/03/23 Pre-op Diagnosis Bladder Tumor Post-op Diagnosis Same Procedure Performed Gemcitabine installation Surgeon Corey Noble MD Anesthesia None Description of Procedure With the patient in the supine position, a 16F Hutson catheter is placed using sterile technique. Using a protective facemask, gown and double layer of gloves Gemcitabine 2gm in 100cc saline is administered through the catheter/into the bladder. The catheter is then plugged. Patient was instructed to lie supine x20min, then to roll both the left and right x20 min. each. Total dwell time will be 60 min., after which the bladder will be drained and catheter removed.
[2023-10-03] MEDS: SODIUM CHLORIDE 0.9% IV 23.7 ML, GEMCITABINE HCL 1,000 MG BLADDER ×2 (08:55)
[2023-10-03] MEDS: fentaNYL CITRATE INJ (*CRX) 100 MCG/2 ML VIAL 25 MCG IV PUSH ×2 (09:01→09:04)
--- NOTE | 2023-10-03 09:15 | SUR.PHASEI ---
0915: Patient is lying on ride side.
--- NOTE | 2023-10-03 09:37 | SUR.PHASEI ---
0935: Patient is lying on left side.
--- NOTE | 2023-10-03 10:26 | SUR.PHASEI ---
1015: RN instilled 150ml of NS and removed catheter.
== END 2023-10-03 11:11 | disposition home or self-care (01) ==
PROVIDERS: PCP Family Medicine; Visit Provider Urology
PROC: 0TBB8ZZ Excision of Bladder, Via Natural or Artificial Opening Endoscopic (ICD-10-PCS; CPT 52235; principal; 2023-10-03 08:15)
DX: C67.3 Malignant neoplasm of anterior wall of bladder (principal); C67.2 Malignant neoplasm of lateral wall of bladder; N32.89 Other specified disorders of bladder; N32.81 Overactive bladder; R31.29 Other microscopic hematuria; R35.0 Frequency of micturition; I10 Essential (primary) hypertension; G47.33 Obstructive sleep apnea (adult) (pediatric); R73.03 Prediabetes; E78.5 Hyperlipidemia, unspecified; I25.2 Old myocardial infarction; I99.9 Unspecified disorder of circulatory system; F17.210 Nicotine dependence, cigarettes, uncomplicated; I48.91 Unspecified atrial fibrillation; I25.10 Atherosclerotic heart disease of native coronary artery without angina pectoris; I73.9 Peripheral vascular disease, unspecified; G89.29 Other chronic pain; M54.50 Low back pain, unspecified; J44.9 Chronic obstructive pulmonary disease, unspecified; Z79.02 Long term (current) use of antithrombotics/antiplatelets; Z98.890 Other specified postprocedural states; Z98.1 Arthrodesis status; Z95.5 Presence of coronary angioplasty implant and graft; Z86.718 Personal history of other venous thrombosis and embolism; Z85.46 Personal history of malignant neoplasm of prostate; Z80.3 Family history of malignant neoplasm of breast; Z82.49 Family history of ischemic heart disease and other diseases of the circulatory system
CPT/HCPCS: 52235; 51720; 88305; J0690; J2405; J2704; J3010; J7120; J9201

== ENCOUNTER 2023-11-26 12:51 | Outpatient (RCR) | payer MEDICARE, BC, SELFPAY ==
--- NOTE | 2023-11-26 14:23 | PTOPEVDC ---
Assessment and note entered by Bita Graves, PT, DPT Thank you for referring Kolby Dickey to [facility].? An evaluation has been completed. No further treatment is needed. Evaluation Information Assessment Status Evaluation Diagnosis low back pain Subjective Information Pt states about 2 years ago he will get a catch in his L hip that limits his ability to walk to bear weight on his leg. On a day to day bases he gets mild low back pain and has for years. He states usually the pain comes and goes in the same day, but is very intense at the time. He has had it twice in the last year. Imaging was negative. He states he was given a steroid pack, and this helped with the hip pain. Reported Pain Level Pain Score 0: Self Report Assessment PT Clinical Summary Pt presents to therapy today for his initial evaluation with a diagnosis of low back pain. Today he demonstrates limited hamstring and piriformis length, decreased lumbar mobility, and pelvic asymmetry. His alignment was able to be corrected with muscle energy techniques. He demonstrates good functional strength. He was given exercises to promote improved lumbar mobility. Pt will be discharged at this time as he does not require skilled therapy services. Plan of Care PT Services Indicated No Treatment Frequency and evaluate and discharged Duration
== END 2023-11-26 14:36 | disposition home or self-care (01) ==
LOC: ANHGOSHPT 12:51
PROVIDERS: PCP Nurse Practitioner Family; Visit Provider Nurse Practitioner Family
DX: M54.50 Low back pain, unspecified (principal)
CPT/HCPCS: 97110; 97161